=== PATIENT | female | born 1960 | race Caucasian/White ===

== ENCOUNTER 2017-02-25 21:29 | Emergency (ER) | payer OTHER | END 2017-02-25 22:25 | disposition home or self-care (01) | LOC: ER 21:29 | DX: M79.89 Other specified soft tissue disorders (principal); M25.572 Pain in left ankle and joints of left foot; E07.9 Disorder of thyroid, unspecified; Z79.899 Other long term (current) drug therapy; Z88.0 Allergy status to penicillin | CPT/HCPCS: 73610; 99070; 99283 ==